=== PATIENT | male | born 1970 | race Caucasian/White ===

== ENCOUNTER 2018-03-21 20:08 | Inpatient (IN) | payer BC ==
[~2018-03-21] VITALS: Ht 175.3 cm; Wt 99.5 kg
[2018-03-21 21:57] LABS: Urine Bacteria NONE SEEN /hpf (None Seen); Urine Blood Negative /uL (Negative); Urine Specific Gravity 1.013 (1.001-1.035); Urine WBC <1 /hpf (0 - 3)
[2018-03-21] MEDS ORDERED: LORazepam 2MG/ML-1ML VIAL IM ONE (22:30)
[2018-03-21] MEDS ORDERED: MEPERIDINE HCL (50 MG/ML) 1 ML VIAL IM ONE (22:30)
[2018-03-21] MEDS ORDERED: LIDOCAINE W/ EPINEPHRINE 2% INJ 20ML VIAL IJ ONE (23:00)
[2018-03-21] MEDS ORDERED: TRIAMCINOLONE 40MG/ML 1ML VIAL IM ONE (23:00)
[2018-03-22] MEDS ORDERED: methylPREDNISolone SOD SUCC 125 MG/2 ML VL IM ONE (00:15)
[2018-03-22] MEDS ORDERED: LIDOCAINE W/ EPINEPHRINE 1% 20ML VIAL ONE (00:29)
[2018-03-22] MEDS ORDERED: methylPREDNISolone SOD SUCC 125 MG/2 ML VL ONE (00:29)
[2018-03-22 02:27] LABS: Basophils # (auto) 0 uL; Basophils % (auto) 0.7 % (0.0-2.0); Eosinophils # (auto) 0.1 uL; Eosinophils % (auto) 1.8 % (0.0-7.0); Hematocrit 41.4 % (41.0-53.0); Hemoglobin 14.3 g/dL (13.5-17.5); Lymphocytes # (auto) 1.9 uL; Lymphocytes % (auto) 30.3 % (10.0-50.0); Mean Corpuscular Hemoglobin 32.3 pg (28.0-32.0); Mean Corpuscular Hgb Conc. 34.6 g/dL (32.0-36.0); Mean Corpuscular Volume 93.3 fL (80.0-100.0); Monocytes # (auto) 0.3 uL; Monocytes % (auto) 4.6 % (0.0-12.0); Neutrophils # (auto) 3.8 uL; Neutrophils % (auto) 62.6 % (37.0-80.0); Nucleated Red Blood Cells % 0.1 %; Platelet Count (auto) 303 10^3/uL (140-450); Red Blood Cells 4.43 10^6/uL (4.5-5.90); White Blood Cell 6.1 10^3/uL (4.4-10.8)
[2018-03-22 02:45] LABS: Albumin 3.5 g/dL (3.4-5.0); BUN/Creatinine Ratio 13.3; Calcium 8.6 mg/dL (8.5-10.1); Potassium 3.8 mmol/L (3.5-5.1)
[2018-03-22 02:48] LABS: Bilirubin, Total 0.4 mg/dL (0.2-1.0); Total Protein 7.2 g/dL (6.4-8.2)
[2018-03-22] MEDS ORDERED: MEPERIDINE HCL (50 MG/ML) 1 ML VIAL IV ONE (06:15)
[2018-03-22] MEDS ORDERED: MEPERIDINE HCL (50 MG/ML) 1 ML VIAL IM ONE (06:45)
[2018-03-22] MEDS ORDERED: LORazepam 2MG/ML-1ML VIAL IV ONE (07:30)
[2018-03-22] MEDS ORDERED: ONDANSETRON HCL 4 MG/2 ML VIAL IV PRN (07:30)
[2018-03-22] MEDS ORDERED: HYDROcodone-ACET 5/325MG TAB PO PRN (07:30)
[2018-03-22] MEDS ORDERED: BACLOFEN 10 MG TAB PO PRN (07:30)
[2018-03-22] MEDS ORDERED: ACETAMINOPHEN 500 MG TAB PO PRN (07:30)
[2018-03-22] MEDS ORDERED: HYDROmorphone HCL 2 MG/ML VL IV PRN (07:30)
[2018-03-22 09:52] VITALS: BP 138/78
[2018-03-22 09:59] VITALS: BP 138/78
[2018-03-22 13:00] VITALS: BP 126/73
[2018-03-22 16:23] VITALS: BP 160/85
[2018-03-22 16:59] VITALS: BP 142/79
[2018-03-22] MEDS: MEPERIDINE HCL (25 MG/ML) 1ML VIAL IV PRN (17:28)
[2018-03-22] MEDS: METHOCARBAMOL 500 MG TAB PO SCH ×2 (18:46→22:29)
[2018-03-22 21:41] VITALS: BP 131/79
[2018-03-22] MEDS: diphenhdrAMINE HCL 25 MG CAP PO PRN (22:25)
[2018-03-23] MEDS: METHOCARBAMOL 500 MG TAB PO SCH ×4 (05:09→22:03)
[2018-03-23 05:20] VITALS: BP 111/60
[2018-03-23 09:00] VITALS: BP 128/83
[2018-03-23] MEDS: MEPERIDINE HCL (25 MG/ML) 1ML VIAL IV PRN ×4 (12:56→22:04)
[2018-03-23 13:00] VITALS: BP 125/75
[2018-03-23 17:00] VITALS: BP 132/74
[2018-03-23 22:00] VITALS: BP 127/78
[2018-03-23] MEDS: diphenhdrAMINE HCL 25 MG CAP PO PRN (22:04)
[2018-03-24 05:00] VITALS: BP 115/73
[2018-03-24] MEDS: METHOCARBAMOL 500 MG TAB PO SCH ×2 (06:18→11:55)
[2018-03-24] MEDS: MEPERIDINE HCL (25 MG/ML) 1ML VIAL IV PRN ×2 (06:25→10:47)
[2018-03-24 08:30] VITALS: BP 101/61
[2018-03-24 12:58] VITALS: BP 111/59
[2018-03-24] MEDS ORDERED: MEPERIDINE HCL (25 MG/ML) 1ML VIAL IV ONE (15:00)
[2018-03-24 17:13] VITALS: BP 114/65
== END 2018-03-24 17:00 | disposition home or self-care (01) | DRG 563 ==
LOC: ER 20:08 → EDBD 20:08 → TELE 20:09 → WEST WING 03-22 09:22
PROVIDERS: ADMIT Nurse Practitioner Family; ATTEND Family Medicine
DX: S39.012A Strain of muscle, fascia and tendon of lower back, initial encounter (principal); M47.897 Other spondylosis, lumbosacral region; M51.27 Other intervertebral disc displacement, lumbosacral region
CPT/HCPCS: 20552; 36415; 72131; 72148; 80053; 81001; 85025; 96372; 96374; J2405